=== PATIENT | female | born 1985 | race Caucasian/White ===

== ENCOUNTER 2016-11-25 08:49 | Emergency (ER) | payer OTHER, MEDICAID ==
[2016-11-25 09:02] VITALS: BP 137/92
--- NOTE | 2016-11-25 09:02 | EDM.PDOC ---
ED HPI GENERAL MEDICAL PROBLEM - General Chief Complaint: General Stated Complaint: CUT ARM, [id number] Time Seen by Provider: 11/25/16 09:02 Source of Information: Reports: Patient History Limitations: Reports: No Limitations - History of Present Illness INITIAL COMMENTS - FREE TEXT/NARRATIVE: Pt was at work and using knife to cut open box accidently cut left arm. Tetanus up to date. - Related Data Allergies Allergy/AdvReac Type Severity Reaction Status Date / Time No Known Allergies Allergy Verified 11/25/16 08:58 Home Meds: Home Meds . [No Known Home Meds] 11/25/16 [History] Past Medical History - Past Health History Medical/Surgical History: Denies Medical/Surgical History Social & Family History - Family History Family Medical History: Noncontributory ED ROS GENERAL - Review of Systems Review Of Systems: See Below Constitutional: Reports: No Symptoms HEENT: Reports: No Symptoms Respiratory: Reports: No Symptoms Cardiovascular: Reports: No Symptoms Endocrine: Reports: No Symptoms GI/Abdominal: Reports: No Symptoms : Reports: No Symptoms Musculoskeletal: Reports: No Symptoms Skin: Reports: Other (cut to left arm) ED EXAM, DIZZINESS - Physical Exam Exam: See Below Exam Limited By: No Limitations General Appearance: Alert Skin Exam: Other (left distal volar mid forearm approx 3cm partial thickness laceration without active bleeding. radial/ulnar pulse intact, digits left hand brisk cap refill and sensory intact) Course - Vital Signs Text/Narrative:: Off work until Sunday. amox 500mg one pill twice a day for 7 days. Last Recorded V/S: Last Vital Signs Temp 36.2 C 11/25/16 08:59 Pulse 90 11/25/16 08:59 Resp 18 11/25/16 08:59 BP 137/92 H 11/25/16 08:59 Pulse Ox 99 11/25/16 08:59 - Orders/Labs/Meds Meds: Medications Discontinued Medications Generic Name Dose Route Start Last Admin Trade Name Trung PRN Reason Stop Dose Admin Lidocaine HCl 30 ml 11/25/16 09:08 11/25/16 09:14 Xylocaine-Mpf 1% INJECT 11/25/16 09:09 30 ml ONETIME ONE Administration Departure - Departure Time of Disposition: 09:33 Disposition: Home, Self-Care 01 Condition: good Clinical Impression: Laceration - Discharge Information Instructions: Stitches, Randall, or Adhesive Wound Closure, [id number] Forms: ED Department Discharge Additional Instructions: Sutures out in 7 days. Keep clean with soap and water. Wear a bandaide with activities. Watch for signs of infection, see provider if noted. Antibiotic as directed.
[2016-11-25] MEDS ORDERED: Lidocaine 1% 30 ML SDV INJECT ONE (09:08)
== END 2016-11-25 09:40 | disposition home or self-care (01) ==
LOC: DL.ED 08:49
DX: S51.812A Laceration without foreign body of left forearm, initial encounter (principal); W26.0XXA Contact with knife, initial encounter
CPT/HCPCS: 12001; 99283

== ENCOUNTER 2016-12-01 13:06 | Emergency (ER) | payer MEDICAID, OTHER ==
[2016-12-01 13:43] VITALS: BP 126/90
--- NOTE | 2016-12-01 14:01 | EDM.PDOC ---
ED HPI GENERAL MEDICAL PROBLEM - General Chief Complaint: Upper Extremity Injury/Pain Stated Complaint: RECHECK ARM. WC INJ 11/25/16 Time Seen by Provider: 12/01/16 14:00 Source of Information: Reports: Patient History Limitations: Reports: No Limitations - History of Present Illness INITIAL COMMENTS - FREE TEXT/NARRATIVE: Pt requests suture removal left forearm. Suture have been in 6 or 7 days. Denies any other complaints. Duration: Day(s): (6) - Related Data Allergies Allergy/AdvReac Type Severity Reaction Status Date / Time No Known Allergies Allergy Verified 12/01/16 13:43 Home Meds: Home Meds . [No Known Home Meds] 11/25/16 [History] Past Medical History - Past Health History Medical/Surgical History: Denies Medical/Surgical History HEENT History: Reports: None Cardiovascular History: Reports: None Respiratory History: Reports: None Gastrointestinal History: Reports: None Genitourinary History: Reports: None [employer] History: Reports: Endometriosis Musculoskeletal History: Reports: None Neurological History: Reports: None Psychiatric History: Reports: None Endocrine/Metabolic History: Reports: None Hematologic History: Reports: None Immunologic History: Reports: None Oncologic (Cancer) History: Reports: None Dermatologic History: Reports: None - Infectious Disease History Infectious Disease History: Reports: Chicken Pox - Past Surgical History Head Surgeries/Procedures: Reports: None Social & Family History - Family History Family Medical History: Noncontributory - Tobacco Use Smoking Status *Q: Never Smoker Used Tobacco, but Quit: Yes Month Tobacco Last Used: ? Second Hand Smoke Exposure: No - Caffeine Use Caffeine Use: Reports: Coffee, Soda, Tea - Recreational Drug Use Recreational Drug Use: No Review of Systems - Review of Systems Review Of Systems: ROS reveals no pertinent complaints other than HPI. ED EXAM, GENERAL - Physical Exam Exam: See Below Exam Limited By: No Limitations General Appearance: Alert, WD/WN, No Apparent Distress Neurological: Alert, Oriented, No Motor/Sensory Deficits Psychiatric: Normal Affect, Normal Mood Skin Exam: Warm, Dry, Normal Color, No Rash, Wound/Incision (left arm laceration healing well, sutures removed by RN) Course - Vital Signs Last Recorded V/S: Last Vital Signs Temp 37.3 C 12/01/16 13:40 Pulse 91 12/01/16 13:40 Resp 16 12/01/16 13:40 BP 126/90 12/01/16 13:40 Pulse Ox 100 12/01/16 13:40 Departure - Departure Time of Disposition: 14:11 Disposition: Home, Self-Care 01 Condition: good Clinical Impression: Visit for suture removal, Laceration re-check - Discharge Information Instructions: Suture Removal, Care After Referrals: Jo Ortiz MD [Primary Care Provider] - Forms: ED Department Discharge Additional Instructions: Follow up in clinic if any further problems. Return to ER for any emergent problems. May use a thin layer of over the counter Bacitracin Zinc Ointment to left arm wound twice a day for 3 to 5 days.
== END 2016-12-01 14:29 | disposition home or self-care (01) ==
LOC: DL.ED 13:06
DX: S51.812D Laceration without foreign body of left forearm, subsequent encounter (principal)
CPT/HCPCS: 99282

== ENCOUNTER 2019-08-27 06:40 | Inpatient (IN) | payer MEDICAID ==
[2019-08-27] MEDS ORDERED: Ondansetron 4 MG/2 ML SDV IVPUSH PRN (22:50)
[2019-08-27] MEDS ORDERED: Carboprost Tromethamine 250 MCG/1 ML Amp IM PRN (22:50)
[2019-08-27] MEDS ORDERED: Acetaminophen 325 MG Tab PO PRN (22:50)
[2019-08-27] MEDS ORDERED: Sodium Chloride 0.9% 10 ML Syringe FLUSH PRN (22:50)
[2019-08-27] MEDS ORDERED: Lidocaine 1% 30 ML SDV INJECT PRN (22:50)
[2019-08-27] MEDS ORDERED: Lactated Ringers 1,000 ML IV ONE (22:50)
[2019-08-27] MEDS ORDERED: Methylergonovine 0.2 MG/1 ML Amp IM PRN (22:50)
[2019-08-27] MEDS ORDERED: Tranexamic Acid 1,000 MG in Sodium Chloride 0.9% 100 ML IV PRN (22:50)
[2019-08-27] MEDS ORDERED: Misoprostol 400 MCG (4 X 100 MCG TAB) RECTAL PRN (22:50)
--- NOTE | 2019-08-27 22:53 | PCM.SN ---
- Free Text/Narrative Note: OB History and Physical 08/27/19 Chief Complaint: leaking fluid HPI: 34 y.o. year old at 39w0d (Estimated Date of Delivery: 09/04/19) who presents for SROM around 10 this morning. She noted a gush of fluid along with continued leaking since that time. She waited and noted continued leaking along with another gush this afternoon, which prompted her to come to be evaluated. She has not noted any increase in contractions or cramping. She notes good movement. AmniSure in the triage was positive. ROS: Negative for headache, nausea, vomiting, diarrhea, fever, chills, hematuria , dysuria, contractions or bleeding per vagina. Allergies: NKDA Medications: vitamins Medical Hx: anemia of , gestational diabetes Surgical Hx: laparoscopy Family Hx: mom and dad with diabetes, sister with diabetes and renal disease. No family history of defects, bleeding or clotting disorders. OB Hx: 2005 term female 5lb vaginal delivery, 2011 term female 6lb1oz vaginal delivery with gestational diabetes, 2012 and 2017 miscarriages. Social Hx: Lives in town with her David. 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 Labs: Blood Type: O Positive Rubella: Immune HBSAg: Nonreactive GBS: Negative Gonorrhea/Chlamydia: Not Detected HIV: Nonreactive RPR: Nonreactive Hep C: Nonreactive Physical Exam: Vitals: Vital Signs - 24 hr 08/27/19 08/27/19 21:25 21:30 Temperature [ 97.9 F Temporal] Pulse, 111 H 112 H Peripheral [ Right Brachial] Respiratory 16 16 Rate Blood Pressure 144/110 H 148/95 H [Right Upper Arm] Gen: No distress CV: Well-perfused, 2+ distal pulses, regular rate and rhythm, no audible murmurs Resp: Non-labored, symmetrical chest expansion, clear to auscultation Abd: gravid, soft, non tender Ext: Moves all extremities, no edema. SVE: 5/80/ballotable FHT: 135, moderate variability, acceleration present, no decelerations noted CTX: Q 1-3 mins Assessment: 34 y.o. year old at 38w6d who presents for SROM. Cat I Strip. Diet controlled gestational diabetes Anemia of Plan: - admit to labor and delivery - routine cares - U/S to confirm position - augment labor - will follow closely Francisca Meneses MD
[2019-08-27] MEDS ORDERED: fentaNYL 100 MCG/2 ML SDV IVPUSH PRN (22:55)
[2019-08-27] MEDS ORDERED: Oxytocin/Normal Saline 30 UNIT/500 ML BAG IV SCH ×2 (23:00)
[2019-08-27] MEDS ORDERED: Calcium Carbonate 500 MG Tab.Chew PO PRN (23:17)
[2019-08-27] MEDS: Lactated Ringers 1,000 ML IV SCH (23:33)
[2019-08-28] MEDS ORDERED: fentaNYL 100 MCG/2 ML SDV ONE (03:12)
[2019-08-28] MEDS ORDERED: EPINEPHrine 1 MG/1 ML Amp ONE (03:12)
[2019-08-28] MEDS ORDERED: Sodium Bicarbonate 4.2% 2.5 MEQ/5 ML SDV ONE (03:13)
[2019-08-28] MEDS: Lactated Ringers 1,000 ML IV SCH ×3 (03:31→06:05)
--- NOTE | 2019-08-28 03:38 | PCM.SN ---
- Free Text/Narrative Note: Intrathecal.Sitting position,sterile prep and drape. 1%lidocaine w bicarb for skinwheal to L2 L3 interspace.Introducer, 24 ga pencan x 1. POS CSF, neg heme, neg parasthesia. 0.1 ml pf 1:1000 epi, 15 mcg pf sufenta, 35 mcg pf fentanyl, 0.4 ml pf NS and 6 mg of 0.75% pf Bupivacaine injected after CSF aspiration. Pt to L lateral position. Procedure time 0310 to 0340
[2019-08-28] MEDS ORDERED: ePHEDrine 50 MG/ML SDV ONE (03:56)
[2019-08-28] MEDS ORDERED: Oxytocin/Normal Saline 30 UNIT/500 ML BAG ONE ×2 (05:59→08:18)
[2019-08-28] MEDS ORDERED: ceFAZolin 2 GM in Premix Bag 1 BAG IV ONE (06:02)
[2019-08-28] MEDS ORDERED: Citric Acid/Sodium Citrate Solution 30 ML Cup PO ONE (06:02)
--- NOTE | 2019-08-28 06:02 | PCM.SN ---
- Free Text/Narrative Note: Labor Progress Note 08/28/19 S: Patient had some low blood pressures after her intrathecal around 0330 this morning. Along with the low blood pressures, the baby started to have recurrent late decelerations. Pitocin was stopped and ephedrine was given. Her blood pressures improved and the decelerations resolved by around 0400. Cervical exam , before and after, was unchanged at 6-7 cm dilated. Pitocin was restarted around 0450 and was stopped around 0500 due to heart rate decelerations. Decelerations continued despite cessation of the pitocin. Cervical exam remained unchanged. Situation, along with risks and benefits, of proceeding with labor vs going to section was discussed with patient and patient would like to proceed with section. O: SVE: 6/80/-2 FHT: baseline 120, moderate variability, accelerations present, recurrent decelerations down to 90 lasting around 45-90 seconds Cx: every 1-3 minutes A: 34 yo who presented with SROM and had labor augmented with pitocin who is having intolerance to labor with cessation of labor progression Gestational diabetes, diet controlled Cat 2 tracing P: proceed with section ancef for prophylaxis Dr. Enriquez to assist routine cares Francisca Meneses MD
[2019-08-28] MEDS ORDERED: Citric Acid/Sodium Citrate Solution 30 ML Cup ONE (06:15)
--- NOTE | 2019-08-28 08:45 | PCM.PRNOTE ---
- Free Text/Narrative Note: OPERATIVE REPORT Date: 08/28/19 Procedure: Primary low transverse section Start: 635 Uterine: 0639 Delivery: 639 Stop: 720 Surgeon: Francisca Meneses MD Bundle Person: Dr. Enriquez Pre-Operative Diagnosis: 34 year old at 39w0d EGA Non reassuring heart tones, cat 2 tracing Arrest of first stage of labor Gestational diabetes, diet controlled Post-Operative Diagnosis: same as above s/p section Anesthesia: Spinal Specimens: none Complications: none apparent Drains: portillo catheter with 250cc clear urine output EBL: 400 mL IVF: 1200cc LR and 400cc of pitocin Findings: intrauterine , viable female infant with APGARS of 8 and 9 weighing 3045g. Indication for Procedure: non reassuring status and arrest of first stage of labor. Procedure in Detail: The patient was brought to the operating room where spinal anesthesia was administered. She was then prepped and draped in routine fashion in dorsal supine position with a leftward tilt. Portillo catheter and SCDs were in place. Incision was made through the skin and carried sharply to the level of the fascia, which was then incised transversely in the midline. This incision was then carried bilaterally with scissors. The fascia was tented up with Brea clamps and dissected off the underlying rectus musculature with sharp and blunt technique in both the superior and inferior direction. The rectus musculature was then in the midline and the peritoneum was entered in the midline with care being taken to avoid any underlying bowel and/or bladder tissue. The operative opening was then extended with manual traction. The peritoneal reflection was identified and the bladder was dissected off the lower uterine segment with sharp and blunt technique. The lower uterine segment was incised transversely in the midline to the level of the amniotic sac then bluntly widened. The infants head was elevated out of the maternal pelvis and was delivered through the incision. The remainder of the infant was then delivered. Bulb suctioning was performed on the operative field. The cord was clamped and cut in standard fashion and then the infant was handed over to the awaiting nursery staff. The placenta was delivered via gentle traction on umbilical cord with concomitant uterine massage followed by manual extraction. The uterus was cleared of remaining products of conception with a dry lap. The uterine incision was closed with a interlocking layer of 0-Vicryl followed by an imbricating layer of the same material. The incision was inspected and complete hemostasis was achieved. The abdomen was then cleared of clot and debris then irrigated. Hemostasis of all incised surfaces was confirmed. The peritoneum was repaired to prevent abdominal contents of getting involved in the closure of the fascia layer. The fascia was then closed with 0-PDS. It was ensured that no underlying abdominal contents were closed in the incision. The skin closed with 4-0 Monocryl on a Bronson needle. Dermabond was then applied and allowed to dry completely. The patient did receive Ancef preoperatively. Sponge and instrument counts were reported as correct times two. Patient tolerated procedure well and was taken to PACU in stable condition. Francisca Meneses MD
--- NOTE | 2019-08-28 08:54 | PCM.DEL ---
L & D Note - General Info Date of Service: 08/28/19 (0640) - Delivery Note Labor: Spontaneous, Augmented by Oxytocin Delivery Outcome: Livebirth Delivery Method: Primary Delivery Mode: Manual Presentation: Right Occiput Anterior (SANTA) Nuchal Cord: None Anesthesia Type: Intrathecal, Spinal Amniotic Fluid Description: Clear Episiotomy Type: None Placenta: Intact, Manual Removal Cord: 3 Vessels Estimated Blood Loss: 400 Resuscitation Needed: No : Suctioned, Stimulated Score 1 min: 8 Score 5 min: 9 Post Delivery Events: Unplanned Delivery Comments (Free Text/Narrative):: Mana is a 34 yo at 39w0d EGA who presented on 08/27/19 with SROM earlier in the day with minimal discomfort. Category 1 tracing upon admission. She was dilated to 4 cm on admission. She progressed with augmentation with pitocin. She received an intrathecal for pain control around 0300 when she was 6 cm dilated and had recurrent late decelerations due to low blood pressures. Pitocin was stopped and Ephedrine was given and pressures and decelerations resolved. After allowing the fetus to recover adequately with a good category 1 tracing noted for over 20 minutes, pitocin was restarted. Upon restarting the pitocin, the recurrent late decelerations recurred. They did not resolve with cessation of the pitocin. She remained at 6 cm dilated and was noted to be less effaced than previously. Delivery options were discussed with the patient, along with risks and benefits of vaginal vs delivery. Patient decided on delivery and the staff was notified. She was taken to the OR and spinal anesthesia was obtained. See procedure note for delivery specifics. She delivered a viable female infant with vigorous and spontaneous cry. Apgars of 8 and 9. weight 3045g. EBL 400 mL. Placenta delivered manually, intact, with a 3 vessel cord. - General Info Date of Service: 08/28/19 Functional Status: Reports: Pain Controlled - Patient Data Weight - Most Recent: 70.307 kg - Problem List Review Problem List Initiated/Reviewed/Updated: Yes - Plan Plan:: Plan: - routine cares - encourage parental bonding - monitor glucose PRN - will follow closely Francisca Meneses MD
[2019-08-28] MEDS ORDERED: Naloxone 2 MG/2 ML Syringe IVPUSH PRN (09:11)
[2019-08-28] MEDS ORDERED: Acetaminophen 325 MG Tab PO PRN (09:11)
[2019-08-28] MEDS ORDERED: Lactated Ringers 1,000 ML IV SCH (09:11)
[2019-08-28] MEDS ORDERED: ePHEDrine 50 MG/ML SDV IVPUSH PRN (09:11)
[2019-08-28] MEDS ORDERED: diphenhydrAMINE 50 MG/ML SDV IVPUSH PRN (09:11)
[2019-08-28] MEDS ORDERED: Acetaminophen/oxyCODONE 325-5 MG Tab PO PRN (09:11)
[2019-08-28] MEDS ORDERED: Ondansetron 4 MG/2 ML SDV IVPUSH PRN (09:11)
[2019-08-28] MEDS: Prenatal Multivitamin with Calcium/Folic Acid/Iron Tab PO SCH (10:18)
[2019-08-28] MEDS: Simethicone 80 MG Tab.Chew PO SCH ×4 (10:18→21:21)
[2019-08-28] MEDS: Ketorolac 30 MG/ML SDV IVPUSH SCH ×2 (13:35→19:01)
[2019-08-28] MEDS: Docusate Sodium 100 MG Cap PO PRN (21:21)
[2019-08-29] MEDS: Ketorolac 30 MG/ML SDV IVPUSH SCH (01:08)
[2019-08-29] MEDS: Acetaminophen/oxyCODONE 325-5 MG Tab PO PRN ×3 (05:11→20:24)
[2019-08-29] MEDS: Simethicone 80 MG Tab.Chew PO SCH ×4 (08:47→20:50)
[2019-08-29] MEDS: Docusate Sodium 100 MG Cap PO PRN ×2 (08:47→20:50)
[2019-08-29] MEDS: Prenatal Multivitamin with Calcium/Folic Acid/Iron Tab PO SCH (08:48)
[2019-08-29] MEDS ORDERED: Oxytocin/Normal Saline 30 UNIT/500 ML BAG IV ONE (09:58)
--- NOTE | 2019-08-29 10:50 | PCM.SN ---
- Free Text/Narrative Note: Progress Note Postoperative Day #1 08/29/19 S: The patient reports that she is doing well overall. She is ambulating a little around the room. Her pain is well controlled and reports that her bleeding is minimal. She is tolerating her diet without issue. She is passing flatus, but has not had a bowel movement yet. No nausea, vomiting, diarrhea, shortness of breath, or other complaints. Patient would really like to go home today. Nursing noted she is still reporting not being comfortable enough to carry the baby across the room. O: Physical exam: Vitals stable Gen: No distress CV: Well-perfused, 2+ distal pulses Resp: Non-Labored, symmetrical chest expansion Abd: Incision is clean, dry, and intact. Fundus is firm and below umbilicus. Ext: Moves all extremities. Assessment: 34 yo G5 now [id number] status post primary low transverse for failure to progress with intolerance to labor who is doing well. gestational diabetes, diet controlled Plan: - Encourage ambulation. - Will allow to shower. - Advance diet - Routine Nursing. Francisca Meneses MD
[2019-08-29] MEDS: Ibuprofen 800 MG Tab PO PRN ×2 (12:09→20:26)
[2019-08-29] MEDS ORDERED: fentaNYL 100 MCG/2 ML SDV ITHECAL ONE (13:41)
[2019-08-29] MEDS ORDERED: Sodium Bicarbonate 4.2% 2.5 MEQ/5 ML SDV ONE (13:41)
[2019-08-29] MEDS ORDERED: EPINEPHrine 1 MG/1 ML Amp ONE (13:41)
[2019-08-29] MEDS ORDERED: Morphine PF 1 MG/ML Amp ONE (13:47)
[2019-08-29] MEDS ORDERED: Ketorolac 30 MG/ML SDV IVPUSH ONE (13:47)
[2019-08-29] MEDS ORDERED: Ondansetron 4 MG/2 ML SDV IV ONE (13:47)
[2019-08-29] MEDS ORDERED: ePHEDrine 50 MG/ML SDV IV ONE (13:47)
[2019-08-29] MEDS ORDERED: diphenhydrAMINE 50 MG/ML SDV IV ONE (13:47)
[2019-08-29] MEDS ORDERED: Dexamethasone 4 MG/ML SDV IV ONE (13:47)
[2019-08-29] MEDS ORDERED: Lactated Ringers 1,000 ML IV ONE (13:47)
[2019-08-30] MEDS: Ibuprofen 800 MG Tab PO PRN (05:00)
[2019-08-30] MEDS: Acetaminophen/oxyCODONE 325-5 MG Tab PO PRN ×2 (05:09→11:03)
[2019-08-30] MEDS: Prenatal Multivitamin with Calcium/Folic Acid/Iron Tab PO SCH (11:03)
[2019-08-30] MEDS: Simethicone 80 MG Tab.Chew PO SCH (11:03)
[2019-08-30 12:46] VITALS: BP 137/87; PULSE 114
--- NOTE | 2019-08-30 14:44 | DISCH ---
FINAL DIAGNOSES: 1. A 39-week gestation. 2. A 34-year-old, 5, now para 3-0-2-3. 3. Diet-controlled gestational diabetes. 4. Anemia of and postop/ stable. 5. Delivery of viable female by primary low transverse section for failure to progress/ intolerance to labor delivering a 6-pound 11- ounce/3045 g female at 0640 on 08/28/2019 with scores of 8 and 9. FINDINGS: This 34-year-old white female, 5, para 2-0-2-2, presented with spontaneous rupture of membranes. She was subsequently evaluated by Dr. Meneses and admitted. She had a reassuring category 1 strip and reactive NST. Had a known history of anemia of and diet-controlled gestational diabetes. Please see her admission H and P and notes for details. She subsequently underwent evaluation and was started on Pitocin infusion for augmentation/induction. The baby developed a non-reassuring heart tone tracing. Pitocin was stopped. However, the heart tones remained concerning, and she was not making cervical progress. Therefore, subsequently had a primary low transverse section performed as noted. Please see the progress notes and operative note for details. A delivering a viable female infant at 0640 on 08/28/[address] Meneses performed surgery assisted by Dr. Enriquez. The baby had excellent scores of 8 and 9 as noted, and the weight again was noted to be 3045 g/6 pounds 11 ounces. HOSPITAL COURSE: Her course has been essentially unremarkable. Her anesthesia has completely resolved. She is ambulating without difficulty. Younger catheter removed, and she is voiding. She is eating without nausea or vomiting. Bottle feeding the baby. Her fundus has remained firm and her flow was within normal limits. She has remained afebrile. Serial white counts were 10.0, 12.3 on post op day #1 and down to 11.6 the day of discharge. Hemoglobin on admit was 11.7. It was down to 9.1 on postop day #1. On the day of discharge, the patient was noted to have a pulse rate that had been gradually increasing and was up into the 120s at times. She also was noted to have elevated blood pressure. Due to these concerns of possible internal bleeding or perhaps developing preeclampsia, I did go ahead and order CBC and preeclampsia workup since she was requesting early discharge home on postop day #2. These labs were drawn and were reassuring showing the hemoglobin stable and actually increased up to 9.6. Her platelet count was 251. BUN 10, creatinine 0.4, uric acid 6.0. Did note her AST to be 46, ALT 18, LDH 239, which were slightly elevated. Therefore, we will consider close followup just to be on the safe side. The patient was discharged home on postop day #2 in stable and improving condition as noted. Will be followed up on 09/01/[address] at [address] Meneses for blood pressure recheck and followup and sooner with any problems. MEDICATIONS: For her will include: 1. [id number]-[id number] ibuprofen or Aleve as discussed. 2. Tylenol if needed. 3. Percocet 5/325, prescription for 28 tablets, and discussed using a half to one if possible for her up to 4 times a day, and she may use 2 only if absolutely needed for her discomfort when she gets home. 4. vitamins 1 daily. 5. Iron tablets, trying to add at least 1 to 2 a day to help with the anemia. 6. Stool softeners as needed to avoid constipation. We will have a followup for a 6-week check and will see Dr. Meneses in the meantime on Sunday and any interval followup as per Dr. Meneses pending her clinical course. All of her questions have been answered. [facility] /[id number]
== END 2019-08-30 13:20 | disposition home or self-care (01) | DRG 788 ==
LOC: DL.OB 06:40 → UNDOADMOB 22:01 → DL.OB 22:01 → DL.MS 22:01 → INTOOBSV 08-28 06:40 → OBSVTOIN 08-28 06:40
PROVIDERS: ADMIT Family Medicine; ATTEND Family Medicine
PROC: 10D00Z1 Extraction of Products of Conception, Low, Open Approach (ICD-10-PCS; principal; 2019-08-28)
DX: O24.420 Gestational diabetes mellitus in childbirth, diet controlled (principal); O99.02 Anemia complicating childbirth; D64.9 Anemia, unspecified; O62.2 Other uterine inertia; O76 Abnormality in fetal heart rate and rhythm complicating labor and delivery; Z3A.39 39 weeks gestation of pregnancy; Z37.0 Single live birth
CPT/HCPCS: 36415; 51702; 76815; 82565; 83615; 83986; 84112; 84450; 84460; 84520; 84550; 85027; 86850; 86900; 86901; A9270-GY; J0171; J0690; J1100; J1200; J1885; J2274; J2405; J2590; J3010; J7120

== ENCOUNTER 2019-09-02 16:54 | Emergency (ER) | payer MEDICAID ==
[2019-09-02 17:33] VITALS: BP 151/103; PULSE 113
[2019-09-02] MEDS ORDERED: Sodium Chloride 0.9% 10 ML Syringe FLUSH PRN (17:34)
[2019-09-02] MEDS ORDERED: Sodium Chloride 0.9% 1,000 ML IV ONE (17:36)
[2019-09-02] MEDS ORDERED: Ketorolac 30 MG/ML SDV IVPUSH ONE (17:36)
[2019-09-02] MEDS ORDERED: Ondansetron 4 MG/2 ML SDV IV ONE (17:36)
--- NOTE | 2019-09-02 17:47 | EDM.PDOC ---
ED HPI GENERAL MEDICAL PROBLEM - General Chief Complaint: Genitourinary Problem Stated Complaint: PAIN ON SIDE Time Seen by Provider: 09/02/19 17:35 Source of Information: Reports: Patient, Old Records, RN, RN Notes Reviewed History Limitations: Reports: No Limitations - History of Present Illness INITIAL COMMENTS - FREE TEXT/NARRATIVE: Pt presents to ER on POD #[address] s/p [address] Dr[address] Meneses on 08/28/19 with c/o severe constipation with no BM x8 days, left sided abdominal pain, mild dysuria , and chills. Denies cough, fever, vomiting, chest pain, or shortness of breath. Pt is not breast feeding. Denies complications in . Onset: Gradual Onset Date: 08/28/19 Duration: Constant, Getting Worse Location: Reports: Abdomen Quality: Reports: Ache, Other (Cramping) Severity: Moderate Improves with: Reports: None Worsens with: Reports: None Associated Symptoms: Reports: No Other Symptoms Treatments OIL SEPARATOR: Reports: Other Medication(s) Left Lower Abdomen Pain Score (Numeric/FACES): 5 - Related Data Allergies Allergy/AdvReac Type Severity Reaction Status Date / Time No Known Allergies Allergy Verified 09/02/19 17:34 Home Meds: Home Meds oxyCODONE HCl/Acetaminophen [Oxycodone-Acetaminophen 5-325] 1 each PO Q4HR 09/01 [History] Past Medical History - Past Health History Medical/Surgical History: Denies Medical/Surgical History HEENT History: Reports: None Cardiovascular History: Reports: None Respiratory History: Reports: None Gastrointestinal History: Reports: None Genitourinary History: Reports: None [employer] History: Reports: Endometriosis, , Spontaneous Other [employer] History: 08-28-2019 Musculoskeletal History: Reports: None Neurological History: Reports: None Psychiatric History: Reports: None Endocrine/Metabolic History: Reports: Diabetes, Gestational Hematologic History: Reports: Anemia Immunologic History: Reports: None Oncologic (Cancer) History: Reports: None Dermatologic History: Reports: None - Infectious Disease History Infectious Disease History: Reports: Chicken Pox - Past Surgical History Head Surgeries/Procedures: Reports: None HEENT Surgical History: Reports: Oral Surgery Female Surgical History: Reports: Other (See Below) Other Female Surgeries/Procedures: endometriosis surgery Social & Family History - Family History Family Medical History: Noncontributory - Tobacco Use Smoking Status *Q: Never Smoker - Caffeine Use Caffeine Use: Reports: Soda - Recreational Drug Use Recreational Drug Use: No - Living Situation & Occupation Living situation: Reports: , with Family ED ROS GENERAL - Review of Systems Review Of Systems: Comprehensive ROS is negative, except as noted in HPI. ED EXAM, GI/ABD - Physical Exam Exam: See Below Exam Limited By: No Limitations General Appearance: Alert, WD/WN, No Apparent Distress Eyes: Bilateral: Normal Appearance Throat/Mouth: Normal Inspection, Normal Voice, No Airway Compromise Head: Atraumatic, Normocephalic Neck: Normal Inspection Respiratory/Chest: No Respiratory Distress, Lungs Clear, Normal Breath Sounds, No Accessory Muscle Use, Chest Non-Tender Cardiovascular: Regular Rate, Rhythm, No Edema, Tachycardia GI/Abdominal Exam: Normal Bowel Sounds, Soft, Distended (slightly), Tender (LUQ , LLQ abdominal tenderness). No: Guarding, Rigid, Rebound (Female) Exam: Deferred Rectal (Female) Exam: Deferred Back Exam: Normal Inspection, Full Range of Motion, NT Extremities: Normal Inspection Neurological: Alert, Oriented, Normal Cognition, No Motor/Sensory Deficits Psychiatric: Normal Mood Skin Exam: Warm, Dry, Intact, Other ( incision intact) Course - Vital Signs Last Recorded V/S: Last Vital Signs Temp 99.2 F 09/02/19 17:28 Pulse 113 H 09/02/19 17:28 Resp 18 09/02/19 17:28 BP 151/103 H 09/02/19 17:28 Pulse Ox 98 09/02/19 17:28 - Orders/Labs/Meds Orders: Active Orders 24 hr Category Date Time Status Enema [RC] ASDIRECTED Care 09/02/19 18:41 Active Peripheral IV Care [RC] . DIRECTED Care 09/02/19 17:35 Active Abdomen 2V AP Flat Upright [CR] Stat Exams 09/02/19 17:36 Ordered CULTURE URINE [RM] Stat Lab 09/02/19 17:30 Received Sodium Chloride 0.9% [Saline Flush] Med 09/02/19 17:34 Active 10 ml FLUSH ASDIRECTED PRN Peripheral IV Insertion Adult [OM.PC] Stat Oth 09/02/19 17:35 Ordered Medication Orders Sodium Chloride (Saline Flush) 10 ml FLUSH ASDIRECTED PRN PRN Reason: Keep Vein Open Last Admin: 09/02/19 18:06 Dose: 10 ml Labs: Laboratory Tests 09/02/19 09/02/19 09/02/19 Range/Units 17:30 17:57 17:57 WBC 10.3 H (5.0-10.0) 10^3/uL RBC 3.52 L (4.2-5.4) 10^6/uL Hgb 10.6 L (12.0-16.0) g/dL Hct 32.2 L (37.0-47.0) % MCV 91.5 (80-100) fL MCH 30.1 (27.0-34.0) pg MCHC 32.9 L (33.0-35.0) g/dL Plt Count 374 D (150-450) 10^3/uL Neut % (Auto) 79.1 H (42.2-75.2) % Lymph % (Auto) 14.0 L (20.5-50.1) % [place] % (Auto) 6.6 (2-8) % Eos % (Auto) 0.2 L (1.0-3.0) % Baso % (Auto) 0.1 (0.0-1.0) % Sodium 138 (135-145) mmol/L Potassium 3.9 (3.6-5.0) mmol/L Chloride 105 (101-111) mmol/L Carbon Dioxide 23.0 (21.0-31.0) mmol/L Anion Gap 13.9 BUN 10 (7-18) mg/dL Creatinine 0.3 L (0.6-1.3) mg/dL Est Cr Clr Drug Dosing 191.58 mL/min Estimated GFR (MDRD) > 60 BUN/Creatinine Ratio 33.33 Glucose 121 H (74-105) mg/dL Calcium 8.5 (8.4-10.2) mg/dl Total Bilirubin 0.3 (0.2-1.0) mg/dL AST 40 (10-42) IU/L ALT 46 (10-60) IU/L Alkaline Phosphatase 108 (42-121) IU/L Total Protein 6.5 L (6.7-8.2) g/dl Albumin 2.6 L (3.2-5.5) g/dl Globulin 3.9 Albumin/Globulin Ratio 0.67 Urine Color Yellow (YELLOW) Urine Appearance Slightly cloudy (CLEAR) Urine pH 8.5 (5.0-9.0) Ur Specific Weir 1.020 (1.005-1.030) Urine Protein Negative (NEGATIVE) Urine Glucose (UA) Negative (NEGATIVE) Urine Ketones Negative (NEGATIVE) Urine Occult Blood Moderate H (NEGATIVE) Urine Nitrite Negative (NEGATIVE) Urine Bilirubin Negative (NEGATIVE) Urine Urobilinogen 1.0 (0.2-1.0) mg/dL Ur Leukocyte Esterase Trace H (NEGATIVE) Urine RBC 20-30 H /HPF Urine WBC 10-20 H (0-5/HPF) /HPF Ur Epithelial Cells Few (NOT SEEN) /HPF Amorphous Sediment Few (NOT SEEN) /HPF Urine Bacteria Few (0-FEW/HPF) /HPF Urine Mucus Moderate H (NOT SEEN) /LPF Meds: Medications Generic Name Dose Route Start Last Admin Trade Name Freq PRN Reason Stop Dose Admin Sodium Chloride 10 ml 09/02/19 17:34 09/02/19 18:06 Saline Flush FLUSH 10 ml ASDIRECTED PRN Administration Keep Vein Open Discontinued Medications Generic Name Dose Route Start Last Admin Trade Name Freq PRN Reason Stop Dose Admin Sodium Chloride 1,000 mls @ 999 mls/hr 09/02/19 17:36 09/02/19 18:04 Normal Saline IV 09/02/19 18:36 999 mls/hr .BOLUS ONE Administration Ketorolac Tromethamine 30 mg 09/02/19 17:36 09/02/19 18:05 Toradol IVPUSH 09/02/19 17:37 30 mg ONETIME ONE Administration Ondansetron HCl 4 mg 09/02/19 17:36 09/02/19 18:06 Zofran IV 09/02/19 17:37 4 mg ONETIME ONE Administration - Radiology Interpretation Free Text/Narrative:: XR Abdomen: distended large bowel, fecal impaction, see Rad. report. - Re-Assessments/Exams Free Text/Narrative Re-Assessment/Exam: 09/02/19 18:49 Plan to admit pt to Dr. Carolina العلي for observation. Departure - Departure Time of Disposition: 18:49 Disposition: Refer to Observation Condition: Fair, Undetermined Clinical Impression: Obstipation, Fecal impaction - Discharge Information *PRESCRIPTION DRUG MONITORING PROGRAM REVIEWED*: Not Applicable *COPY OF PRESCRIPTION DRUG MONITORING REPORT IN PATIENT EVERARDO: Not Applicable Forms: ED Department Discharge Sepsis Event Note - Evaluation Sepsis Screening Result: No Definite Risk - Focused Exam Vital Signs: Vital Signs Temp Pulse Resp BP Pulse Ox 09/02/19 17:28 99.2 F 113 H 18 151/103 H 98 Date Exam was Performed: 09/02/19 Time Exam was Performed: 18:47 - My Orders Last 24 Hours: My Active Orders 09/02/19 17:30 CULTURE URINE [RM] Stat 09/02/19 17:34 Sodium Chloride 0.9% [Saline Flush] 10 ml FLUSH ASDIRECTED PRN 09/02/19 17:35 Peripheral IV Care [RC] . DIRECTED Peripheral IV Insertion Adult [OM.PC] Stat 09/02/19 17:36 Abdomen 2V AP Flat Upright [CR] Stat 09/02/19 18:41 Enema [RC] ASDIRECTED - Assessment/Plan Last 24 Hours: My Active Orders 09/02/19 17:30 CULTURE URINE [RM] Stat 09/02/19 17:34 Sodium Chloride 0.9% [Saline Flush] 10 ml FLUSH ASDIRECTED PRN 09/02/19 17:35 Peripheral IV Care [RC] . DIRECTED Peripheral IV Insertion Adult [OM.PC] Stat 09/02/19 17:36 Abdomen 2V AP Flat Upright [CR] Stat 09/02/19 18:41 Enema [RC] ASDIRECTED
[2019-09-02 18:22] LABS: ANION GAP 13.9; CHLORIDE,CL 105 mmol/L (101-111); SODIUM,NA 138 mmol/L (135-145)
== END 2019-09-02 18:47 | disposition other institution (70) ==
LOC: DL.ED 16:54
DX: K56.41 Fecal impaction (principal)
CPT/HCPCS: 36415; 74019; 80053; 81001; 85025; 87086; 96361; 96374; 96375; 99284; J1885; J2405; J7030

== ENCOUNTER 2019-09-02 18:56 | Observation (INO) | payer MEDICAID ==
[2019-09-02] MEDS ORDERED: Sodium Chloride 0.9% 10 ML Syringe FLUSH PRN (22:27)
[2019-09-02] MEDS: Sodium Chloride 0.9% 1,000 ML IV SCH (23:35)
--- NOTE | 2019-09-03 04:36 | HP ---
CHIEF COMPLAINT: Unable to have a bowel movement. HISTORY OF PRESENT ILLNESS: The patient is a 34-year-old, 5, para 3-0-2 - 3, who is currently 5 days status post primary low transverse section performed by Dr. Meneses. The patient reports when she left the hospital, she had been passing flatus, but had not yet had a bowel movement. She went home and she has been tolerating regular diet, recovering as expected from her operative procedure. Pain has been well controlled. She is voiding without any difficulties, but does have some concerns about potential bladder infection. She reports not being able to pass flatus for the past few days that she can think of. She has been unable to pass a bowel movement ever since surgery, but again she has been feeling hungry and she has been able to tolerate a near regular diet, just not eating quite as much as she normally would. Denies any severe abdominal pain but reports some discomfort, also noticing bloating and distention, primarily concerned about the increased pressure on her incision site. She has also been straining to have bowel movements, therefore has some pain right in the rectal area. Otherwise, no fevers, no chills, no shortness of breath. No leg pain or edema. No other alarming symptoms. PAST MEDICAL HISTORY: Endometriosis, vaginal delivery x2. PAST SURGICAL HISTORY: 1. Laparoscopy in 2004 for endometriosis. 2. section performed on 08/28/2019. FAMILY HISTORY: Mother, father and sister with diabetes. Sister also has kidney disease. Maternal grandmother with diabetes. Maternal grandfather, heart disease. Otherwise, noncontributory. SOCIAL HISTORY: The patient lives in [facility] with her and their 3 children. She is a [id number] mother. MEDICATIONS: Oxycodone 5/325, 1 to 2 tablets every 4 to 6 hours as needed for pain, reports she has not taken any recently; Colace 100 mg twice daily; milk of magnesia 15 mL; Dulcolax suppository x1. The patient has tried a variety of stsl-wcz-lgewgsk medications to try and help herself have a bowel movement. ALLERGIES: No known drug allergies. REVIEW OF SYSTEMS: Pertinent positives and negatives underneath the review of systems as outlined above. No additional information obtained at this time. PHYSICAL EXAMINATION: Vital Signs: Temperature is 99.0, pulse 107, blood pressure 150/105 in the Emergency Department, respiratory rate of 18, O2 saturation is 97% on room air. HEENT: Grossly unremarkable. Heart: Regular without murmur. Lungs: Clear to auscultation bilaterally. Abdomen: Distended but remained soft, tympanic to percussion. No obvious rebound or guarding. Incision site is clean, dry and intact. She has hypoactive bowel sounds that are present in all 4 quadrants. Extremities: Trace edema. No erythema or tenderness noted. LABORATORY DATA: White blood cell count 10.3, hemoglobin 10.6, platelet count 374. Complete metabolic profile: Normal potassium at 3.9, creatinine normal at 0.3, glucose of 121, total protein 6.5 and albumin 2.6, otherwise unremarkable. Urinalysis does show some moderate occult blood, 20 to 30 rbc's and 10 to 20 wbc's per high-power field. I suspect much of this is from contamination from postoperative vaginal bleeding and discharge versus truly a bladder infection. X-ray, official report currently pending. She does have gaseous distention of the bowel and there is one area that has a diameter of about 5 cm and some of the bowel dilated greater than 3 cm. There is no air-fluid level. Significant amount of stool is seen in the lower portion, overall consistent with ileus and not small bowel obstruction. ASSESSMENT: 1. Adynamic postoperative ileus. 2. Five days status post primary low transverse section. PLAN: At this time, the patient is being admitted to the hospital. We are going to try some soapsuds enemas hopefully until clear or at least she is having reduction in her abdominal distention and discomfort and is passing some flatus and stool. She is not having any nausea or vomiting, therefore NG tube placement is not currently indicated. She will be put on a clear liquid diet at this time and I advised her that I do not want her to have anything solid by mouth as we are trying to actually get the stool out of the body at this time. Discussed with her the possibility that she has an ileus that could lead to a bowel obstruction and potential transfer to [place] for laparotomy could become necessary. Nurses are aware to monitor for any signs or symptoms of worsening and that they need to contact me should things change. [facility] /[id number] [facility]
[2019-09-03] MEDS: Sodium Chloride 0.9% 1,000 ML IV SCH (06:01)
[2019-09-03 08:09] VITALS: PULSE 100
[2019-09-03] MEDS ORDERED: NIFEdipine 10 MG Cap PO SCH (08:30)
[2019-09-03] MEDS: Simethicone 80 MG Tab.Chew PO SCH ×2 (09:03→11:38)
[2019-09-03] MEDS ORDERED: Benzocaine/Docusate Sodium 20-283 MG/5 ML Enema RECTAL ONE (11:45)
[2019-09-03 14:18] VITALS: BP 141/100
--- NOTE | 2019-09-04 11:25 | DISCH ---
ADMITTING DIAGNOSES: 1. Adynamic ileus, postoperative. 2. Status post primary section. DISCHARGE DIAGNOSIS: 1. Adynamic ileus, postoperative- improved. 2. Status post section. 3. Hypertension. BRIEF HISTORY: A 34-year-old, 5, now para 3-0-2-3, who is 5 days post primary section and upon discharge from that hospitalization was passing flatus, but has not had a bowel movement at all, having increased abdominal pain, distention, feelings of fullness and starting to have some decreased appetite. No nausea or vomiting. No fever, no chills, and no other focal symptoms. She was evaluated in the ER and found to have copious amounts of stool on x-ray as well as large amount of gaseous distention. ER doctor called me for admission for enemas and to further assess her situation and make sure that things improved. HOSPITAL COURSE: The patient received some enemas, and she had already taken several oxal-miw-wnotafb stool softeners. She did get some good stool output and was voiding without difficulties. After the enemas were stopped, she did continue to pass some small amounts of stool on her own and then that kind of slowed down and paused. On the day of discharge, she reported a small bowel movement around 7 a.m. when she went for repeat x-ray and then needed a mini enema around noon to pass more stool. She was able to pass flatus at that time. She was tolerating p.o. Her belly was much softer and her abdominal pain was gone. She was anxious to go home and feeling that things would continue to improve on their own. The x-ray unfortunately had shown more gaseous distention from admission to the second x-ray. So, I consulted with Radiology as well as [employer] on-call in [place] in the morning, and we had agreed that if she continued to pass some stool on her own, she would be able to be discharged home with a very close followup and instructions. If she continues to have any problems, she would be admitted. Certainly, if she developed fever, increased abdominal pain, blood in the stools, or any other concerning symptoms, then CT scan and transfer would be most likely. DISCHARGE CONDITION: Good. The patient reports that she is feeling well. She is tolerating a clear liquid diet well. She has been advised not to use solids until her bowel activity has returned to normal. She is aware to stay away from carbonated beverages and use of straws. PHYSICAL EXAMINATION: Discharge Vital Signs: Temperature 97.8, pulse 100, blood pressure has been high diastolically primarily and was 109/104 and on recheck 141/100, respiratory rate of 20, and O2 saturations 96% on room air. Heart: Regular without any murmur. Lungs: Clear to auscultation bilaterally. Abdomen: Soft and nontender. Incision site is clean, dry, and intact. Bowel sounds are hypoactive, but present in all 4 quadrants. Extremities: No edema, erythema, or tenderness. LABORATORY DATA: Laboratories were not repeated. DISCHARGE MEDICATIONS: Colace 100 mg twice daily. Simethicone 80 mg t.i.d. as needed for gas. She can continue with use of dulcolax suppositories and over- the-counter Fleet enemas to assist with continued bowel movements. Nifedipine 10 mg p.o. t.i.d. DISCHARGE INSTRUCTIONS: The patient was given extensive education on ileus, volvulus, small bowel obstruction, bowel perforation, and potential complications. If she has any increased abdominal distention, pain, blood in the stools, develops fever, starts vomiting or has any other new or worsening symptoms, she needs to return for repeat evaluation and considered high risk for postoperative complications and partial bowel necrosis and need for followup surgery. She verbalized understanding of all of these things, and her questions were answered. DISCHARGE DIAGNOSIS: Hypertension. Note that the patient reports elevated blood pressures during her and had persistent elevated diastolic pressures while in the hospital. Therefore, treatment initiated. [facility] /[id number] [facility]TD[facility]
== END 2019-09-03 13:50 | disposition home or self-care (01) ==
LOC: DL.MS 18:58
PROVIDERS: ADMIT Family Medicine; ATTEND Family Medicine
DX: O99.63 Diseases of the digestive system complicating the puerperium (principal); O10.93 Unspecified pre-existing hypertension complicating the puerperium; K91.89 Other postprocedural complications and disorders of digestive system; K56.0 Paralytic ileus
CPT/HCPCS: 74019; 96360; 96361; A9270; G0378; J7030

== ENCOUNTER 2021-09-15 19:55 | Emergency (ER) | payer OTHER, BC ==
[2021-09-15] MEDS ORDERED: Cyclobenzaprine 10 MG Tab PO ONE (19:56)
[2021-09-15] MEDS ORDERED: Iopamidol 612 MG/ML 100 ML Bottle IVPUSH ONE (20:24)
[2021-09-15] MEDS ORDERED: Acetaminophen 325 MG Tab PO ONE (21:27)
[2021-09-15 21:48] LABS: ANION GAP 15.8 mEq/L (7-13); CHLORIDE,CL 99 mmol/L (98-107); SODIUM,NA 135 mmol/L (136-145)
[2021-09-15] MEDS ORDERED: Bacitracin Oint 1 GM U/D Packet TOP ONE (21:59)
[2021-09-15 22:22] VITALS: BP 149/106; PULSE 104
[2021-09-15] MEDS ORDERED: Cyclobenzaprine 10 MG Tab ONE (22:40)
== END 2021-09-15 22:46 | disposition home or self-care (01) ==
LOC: DL.ED 19:55
DX: S16.1XXA Strain of muscle, fascia and tendon at neck level, initial encounter (principal); S00.83XA Contusion of other part of head, initial encounter; S60.012A Contusion of left thumb without damage to nail, initial encounter; S60.011A Contusion of right thumb without damage to nail, initial encounter; E11.65 Type 2 diabetes mellitus with hyperglycemia; V89.2XXA Person injured in unspecified motor-vehicle accident, traffic, initial encounter; Y92.410 Unspecified street and highway as the place of occurrence of the external cause
CPT/HCPCS: 36415; 70450; 71260; 72125; 73140; 74177; 80053; 80307; 81003; 82150; 83690; 84703; 85025; 86850; 86900; 86901; 99284; 99285; A9270; Q9967